=== PATIENT | male | born 1940 | race Caucasian/White ===

== ENCOUNTER 2017-10-15 09:38 | Inpatient (IN) | payer MEDICARE, BC ==
[~2017-10-15 09:38] MED LIST: Buffered Lidocaine 0.9% SYRIN* 5 ML/SYR SYRINGE INTRADERM ONE; Famotidine IV* 10 MG/ML 2 ML (20 mg) IV ONE
[2017-10-15] MEDS ORDERED: Buffered Lidocaine 0.9% SYRIN* 5 ML/SYR SYRINGE ONE (09:52)
[2017-10-15] MEDS ORDERED: Famotidine IV* 10 MG/ML 2 ML (20 mg) ONE (09:52)
[2017-10-15 10:50] LABS: EGFR Non-African American 58.7 (>60)
[2017-10-15] MEDS ORDERED: ceFAZolin 2 GM PREMIX (*) 2 GM/50 ML BAG IVPB ONE (12:48)
[2017-10-15] MEDS ORDERED: fentaNYL* 50 MCG/ML 5 ML VIAL (250 MCG VIAL) ONE (13:08)
[2017-10-15] MEDS ORDERED: Midazolam* 1 MG/ML 10 ML VIAL (10 MG) ONE (13:08)
[2017-10-15] MEDS ORDERED: Dexamethasone IV* 4 MG/ML 1 ML (4 MG) ONE (13:08)
[2017-10-15] MEDS ORDERED: Propofol* 10 MG/ML 20 ML BTL IV PUSH ONE (13:08)
[2017-10-15] MEDS ORDERED: Succinylcholine* 20 MG/ML 10 ML VIAL ONE (13:08)
[2017-10-15] MEDS ORDERED: Ondansetron INJ* 2 MG/ML VIAL ONE (13:08)
[2017-10-15] MEDS ORDERED: Lidocaine 2% PF * 5 ML VIAL ONE (13:08)
[2017-10-15] MEDS ORDERED: Lidocaine 1% MPF wEPI 200,000* 30 ML SDV ONE (13:15)
[2017-10-15] MEDS ORDERED: Bacitracin OINTMENT* 0.5% 0.5 oz TUBE ONE (13:15)
[2017-10-15] MEDS ORDERED: Naloxone* 0.4 MG/ML 1 ML VIAL IV PRN (16:07)
[2017-10-15] MEDS ORDERED: Ondansetron INJ* 2 MG/ML VIAL IV PRN (16:07)
[2017-10-15] MEDS ORDERED: fentaNYL* 50 MCG/ML 2 ML VIAL (100 MCG VIAL) IV PRN (16:07)
[2017-10-15] MEDS ORDERED: Labetalol IV* 5 MG/ML 20 ML VIAL ONE (16:21)
[2017-10-15] MEDS ORDERED: fentaNYL* 50 MCG/ML 2 ML VIAL (100 MCG VIAL) ONE (16:47)
[2017-10-15] MEDS ORDERED: Haloperidol INJ IV/IM* 5 MG/ML AMP ONE (16:56)
[2017-10-15] MEDS ORDERED: Dextrose 50% Syringe 50 ML* 25 GM/50 ML SYRINGE IV PUSH PRN (17:02)
[2017-10-15] MEDS ORDERED: hydrALAZINE IV* 20 MG/ML VIAL IV SLOW PU PRN (18:13)
[2017-10-15] MEDS ORDERED: hydrALAZINE IV* 20 MG/ML VIAL ONE (18:17)
[2017-10-15] MEDS ORDERED: hydrALAZINE IV* 20 MG/ML VIAL IV SLOW PU ONE (18:38)
[2017-10-15] MEDS: Insulin GLARGINE(*) 1 UNITS UNIT SUBCUT SCH (20:57)
[2017-10-15] MEDS: Sertraline* 50 MG TAB PO SCH (20:57)
[2017-10-15] MEDS: Atorvastatin* 10 MG TAB PO SCH (20:57)
[2017-10-15] MEDS: Tamsulosin CAP* 0.4 MG PO SCH (20:57)
--- NOTE | 2017-10-15 21:32 | CONS ---
CC: Dr. Ying Soares; Dr. Springer * CONSULTATION REPORT: DATE OF CONSULT: 10/15/17 PRIMARY CARE PROVIDER: Dr. Ying Soares. REQUESTING PHYSICIAN FOR CONSULT: Dr. Springer. REASON FOR MEDICAL CONSULTATION: Evaluation and medical management of comorbid medical condition. HISTORY OF PRESENT ILLNESS: I will refer you to Dr. Springer's H and P for further details. In short, Mr. 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 He underwent further imaging and it was felt by Dr. Springer that the patient would benefit from a neck dissection either modified or radical neck dissection. He underwent the procedure today. 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 Because of his medical complexity, we were asked to get involved to help manage this. The patient was evaluated in the PACU. He is really still drowsy. He is fixated on wanting to get out of the bed. He states he is not having any chest pain or shortness of breath. He does seem rather anxious. He states that he does not feel lightheaded or dizzy. He says that he just wants to get up and he is fixated on this. He states he is not having any pain. He denied any chest pain or shortness of breath to me. PAST MEDICAL HISTORY: Significant for: 1. Squamous cell cancer of the neck. 2. Also has a history of hypertension. 3. Hypothyroidism. 4. Diabetes. 5. BPH. 6. Anxiety. 7. History of Guillain-[place]. PAST SURGICAL HISTORY: 1. He is status post neck dissection. 2. He has had a history of rotator cuff repair. 3. Cataract extraction. 4. Thyroid resection. HOME MEDICATIONS: According to the preop list include: 1. Tramadol 25 mg every 6 hours as needed. 2. Metformin 1000 mg p.o. b.i.d. 3. BuSpar 15 mg in the morning. 4. Vitamin D3 5000 units daily. 5. Flomax 0.4 mg daily. 6. Zoloft 50 mg daily. 7. Multivitamin 1 tablet daily. 8. Lisinopril 1 tablet daily. 9. Synthroid 200 mcg p.o. daily. 10. Levemir 10 units at bedtime, 30 units in the morning. 11. Proscar 5 mg daily. 12. Calcitriol 0.5 mcg p.o. daily. 13. Lipitor 10 mg daily. 14. AREDS 1 tablet p.o. b.i.d. ALLERGIES TO MEDICATIONS: Include CODEINE and DARVON. FAMILY HISTORY: His mother had a history of diabetes. Father had a history of CVA. His mother is also bipolar. SOCIAL HISTORY: There is no report of smoking or drinking. His surrogate decision maker is his . REVIEW OF SYSTEMS: There is no documented fever. He denied having any significant weight change. There was no double vision. He denies having any ear discharge. No rhinorrhea. Denied sore throat. Denies having any chest pain. Denies any orthopnea. No nocturnal dyspnea. There was no abdominal pain. He says he does not feel nauseous. There is no vomiting. No dysuria. No frequency. No seizure. No loss of consciousness. No pruritus and no skin ulcerations. Review of 14 systems completed. All others negative. PHYSICAL EXAMINATION: Vital Signs: Blood pressure preop was 157/77 with a pulse of 86, respirations 16, O2 sat 99%, temperature 97.0. In the PACU, his blood pressure is now running 186/90. Again, it is difficult to get an accurate blood pressure because he is rather restless. His heart rate is right around 90, respirations were 18 and his O2 saturations now are 99% on 4 L, temperature is pending. HEENT: Head: Atraumatic. Eyes: EOMs intact. Sclerae anicteric and not pale. Neck: He does have an incision noted to the left portion of his neck just above the left clavicle. It is actually open to air. It is clean, dry, and intact. He has 2 JEANETH drains coming out from the left side of his neck as well, which is draining serosanguineous fluid. Throat : Oral mucosa appears to be moist. No oropharyngeal erythema. Heart: Sounds S1, S2. Regular rate and rhythm. No murmurs, rubs, or gallops. Lungs: Clear to auscultation bilaterally. No wheezes, rales, or rhonchi. Abdomen: Soft, flat, nontender. Bowel sounds hypoactive. Extremities: Pulses were 2+ throughout. He is moving all 4 extremities at this point with 5/5 strength. Neurologically, again he is fixated on wanting to get up. He does know his name is Foster. He knows that he is in the hospital. His speech was clear. His grassland conservationist were equal. He had no gross obvious focal deficits. No facial drooping. Skin: Intact with the exception he has an incision to his neck, which is open to air, clean, dry, and intact. LABORATORY DATA/DIAGNOSTIC STUDIES: Sodium of 131, potassium 4.8, chloride 98, bicarb of 25, BUN was 28, creatinine of 1.20, which is near his baseline, glucose of 150. His preop CBC reveals WBC of 6.2, RBC of 3.74, hemoglobin 12.4 , hematocrit 36, his platelet count was 254. EKG: Sinus rhythm, rate of 83, no ST elevations or T wave inversions. Old medical records were reviewed. ASSESSMENT AND PLAN: Mr. Meyer is a 76-year-old male patient coming in to the ENT surgical service today for a neck dissection. We were asked to evaluate. My recommendations at this point are: 1. Status post left neck mass resection. I will defer the management to Dr. Springer. 2. Hypertension. At this point, his blood pressure is rather elevated, but it could be secondary to anxiety. Anesthesia has given him labetalol already. In addition to this, I have given him Haldol to see if will help calm him. At this point, if his blood pressure does remain elevated, I would order p.r.n. hydralazine. Going forward, we will continue to keep an eye on this and also we will go ahead and order lisinopril and we will continue to follow. 3. Hypothyroidism. Continue Synthroid. 4. Diabetes. I have put him on Lantus 30 at bedtime with sliding scale holding the metformin. 5. Benign prostatic hypertrophy. His bladder scan in the PACU was 207, we will monitor. He has had a history of urinary retention in the past. We will continue his Proscar and his Flomax. 6. Anxiety. Continue supportive care. 7. Guillain-[place]. Currently, at this point, not an active issue. We will monitor. 8. DVT prophylaxis. Defer to the surgical team. 9. Fluids, electrolytes, and nutrition. I would recommend a consistent carb diet. TIME SPENT: Time spent on the consult 60 minutes, greater than half that time was spent [id number] with the patient obtaining my history and physical, the other half time was spent going plan of care with the patient, implementing the plan of care. I did discuss the plan of care with my attending, Dr. Miramontes; she is in agreement. MOOKIE KONG, WIRE MESH FILTER FABRICATOR [id number]/CPS #: [id number] ALICE
[2017-10-15] MEDS ORDERED: traMADol TAB* 50 MG PO PRN (21:45)
[2017-10-15] MEDS: metFORMIN* 1,000 MG TAB PO SCH (22:06)
[2017-10-15] MEDS ORDERED: Acetaminophen TAB* 325 MG PO PRN (22:15)
[2017-10-15] MEDS ORDERED: Ibuprofen TAB* 800 MG PO PRN (22:16)
[2017-10-15] MEDS ORDERED: HYDROcodone/ACETAMIN 5-325 MG* 1 TAB PO PRN (22:17)
[2017-10-15] MEDS ORDERED: Ondansetron INJ* 2 MG/ML VIAL IM PRN (22:19)
[2017-10-15] MEDS ORDERED: Ondansetron TAB* 4 MG PO PRN (22:22)
--- NOTE | 2017-10-16 05:04 | OP ---
OPERATIVE REPORT: DATE OF OPERATION: 10/15/17 DATE OF : 38 SURGEON: Landry Springer MD. [employer] UNION: Dr. Alejandre. ANESTHESIA: General. 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 OPERATIVE PROCEDURE: Left modified radical neck dissection under general anesthesia. COMPLICATIONS: None. DISPOSITION: Good. SPECIMEN: Left neck dissection. ESTIMATED BLOOD LOSS: Less than 20 mL. DESCRIPTION OF PROCEDURE: The patient was taken to the operating room, placed in supine position on the operating room table. General anesthesia was induced and he was orotracheally intubated. His he ad was hyperextended and turned to the right and a low apron incision was demarcated, injected with 1 % lidocaine, 200,000 epinephrine. He was prepped with Betadine and draped in sterile fashion. Skin incision was made with a 10 blade through the skin and platysma muscle, inferior and superior subplat ysmal flaps were raised. The inferior edge of the submandibular gland was found and the fascia was e levated off of it superiorly to preserve the margin of the mandibular nerve. The submandibular gland was taken with dissection by dissecting superior to it and leaving it attached inferiorly. This allo wed us to find the digastric muscle. The digastric muscle was traced from its anterior to posterior extent to the superior extent of the sternocleidomastoid muscle also. It became apparent at this poi nt that at least most of the sternocleidomastoid muscle was not involved, so the decision was made to preserve it. The fascia was retracted off of it posterior to medially and left attached to the spec imen. We unwrapped the sternocleidomastoid muscle to the deep fat and lymphatics. Inferiorly, we fo und the omohyoid muscle, unwrapped this but the tumor was going around it medially so we cut this lat erally and ultimately resected the omohyoid muscle with the specimen deep to the omohyoid muscle and inferior we defined our lower aspect of our dissection and brought this down to the floor of the neck . Initially, we isolated the internal jugular vein but found that the tumor was adherent to it in th e mid portion and towards the end of the case we had to tie and cut the internal jugular vein inferio rly and superiorly, this was done with 0 silks and then a 2-0 silk ligature to secure the inferior st itch and that is how it was cut. The 12th cranial nerve was found, traced and preserved as was the s parveen accessory nerve to the left shoulder. The submuscular recess was dissected free and U-flipped over and under the spinal accessory nerve. The deep aspect of the dissection was done to preserve th e rootlets coming out of the neck and the neck dissection was lifted off of the floor of the neck, pe eling it off of the vagus nerve, the internal carotid artery, again the internal jugular vein was lef t on to the specimen. We had to resect some of the lateral strap muscles inferiorly and the omohyoid brought it to the hyoid bone, we tipped these off of the hyoid bone and came around superiorly again including the submandibular gland and the specimen. The specimen was put in formalin for pathology. The hemostasis was ensured. The wound was irrigated with normal saline, two JEANETH drains were placed, these were #[address] with a drain stitch. The skin was closed with 3-0 deep dermal V icryls and then kate, and then antibiotic ointment was placed. The patient tolerated this well, no complications, extubated uneventfully and transferred to recovery room in stable condition. [id number]/[facility] #: [id number]
[2017-10-16 05:54] LABS: ABS Basophils 0 10^3/ul (0-0.2); ABS Eosinophils 0 10^3/ul (0-0.6); ABS Lymphocytes 1.2 10^3/ul (1.0-4.8); ABS Monocytes 1.2 10^3/ul (0-0.8); ABS Neutrophils 5.6 10^3/ul (1.5-7.7); ABS Nucleated RBC 0 10^3/ul; Eosinophil % 0.2 % (0-6); Hematocrit 33 % (42-52); Hemoglobin 11.6 g/dl (14.0-18.0); Lymphocyte % 15.2 % (25-47); Mean Corpuscular HGB Conc 35 g/dl (31-36); Mean Corpuscular Hemoglobin 33 pg (27-31); Mean Corpuscular Volume 95 fL (80-94); Mean Platelet Volume 6.6 um3 (7.4-10.4); Nucleated Red Blood Cells % 0; Platelet Count 235 10^3/ul (150-450); Red Cell Distribution Width 15 % (10.5-15); White Blood Count 8.1 10^3/ul (3.5-10.8)
[2017-10-16 06:10] LABS: EGFR Non-African American 64.2 (>60)
[2017-10-16] MEDS: Levothyroxine TAB* 100 MCG TAB PO SCH (06:10)
[2017-10-16] MEDS: Ondansetron INJ* 2 MG/ML VIAL IV PRN ×2 (06:34→13:47)
[2017-10-16] MEDS: Lisinopril TAB* 5 MG PO SCH (08:07)
[2017-10-16] MEDS: Calcitriol CAP* 0.25 MCG PO SCH (08:07)
[2017-10-16] MEDS: busPIRone TAB* 15 MG PO SCH (08:07)
[2017-10-16] MEDS: metFORMIN* 1,000 MG TAB PO SCH ×2 (08:07→19:52)
[2017-10-16] MEDS: Cholecalciferol TAB* 1000 UNITS PO SCH (08:07)
[2017-10-16] MEDS: Finasteride TAB* 5 MG PO SCH (08:07)
[2017-10-16] MEDS: AREDS 2 PO SCH ×2 (08:23→19:52)
[2017-10-16] MEDS: [UNRECOGNIZED DRUG - OTHER] PO SCH (08:24)
[2017-10-16] MEDS: Insulin LISPRO* 1 UNITS UNIT SUBCUT SCH ×3 (08:41→17:23)
--- NOTE | 2017-10-16 10:30 | PN ---
Subjective Date of Service: 10/16/17 Interval History: patient reports that he was restless during the night, states that he feel better now. Denies chest pain or shortness of breath. denies abd pain n/v/d Family History: Unchanged from Admission Social History: Unchanged from Admission Past Medical History: Unchanged from Admission Objective Active Medications: Acetaminophen (Tylenol Tab*) 650 mg PO Q4H PRN PRN Reason: PAIN Hydrocodone Bitart/Acetaminophen ([place] 5-325 Tab*) 1 tab PO Q4H PRN PRN Reason: PAIN Atorvastatin Calcium (Lipitor*) 10 mg PO QPM [facility] Last Admin: 10/15/17 20:57 Dose: 10 mg Buspirone HCl (Buspar Tab *) 15 mg PO QAM [facility] Last Admin: 10/16/17 08:07 Dose: 15 mg Calcitriol (Rocaltrol Cap*) 0.5 mcg PO QAM [facility] Last Admin: 10/16/17 08:07 Dose: 0.5 mcg Cholecalciferol (Vitamin D Tab*) [facility] Last Admin: 10/16/17 08:07 Dose: 5,000 units Dextrose (D50w Syringe 50 Ml*) 12.5 gm IV PUSH .FOR FS < 60 - SS PRN PRN Reason: FS < 60 Finasteride (Proscar Tab*) 5 mg PO QAM [facility] Last Admin: 10/16/17 08:07 Dose: 5 mg Hydralazine HCl (Apresoline Iv*) 5 mg IV SLOW PU Q6H PRN PRN Reason: BLOOD PRESSURE Last Admin: 10/15/17 18:17 Dose: 5 mg Lactated Ringer's (Lactated Ringers 1000 Ml Bag*) 1,000 mls @ 100 mls/hr IV PER RATE [facility] Last Admin: 10/16/17 05:52 Dose: 100 mls/hr Ibuprofen (Motrin Tab*) 800 mg PO Q8H PRN PRN Reason: PAIN Insulin Glargine (Lantus(*)) 30 units SUBCUT Q24H [facility] Last Admin: 10/15/17 20:57 Dose: 30 units Insulin Human Lispro (Humalog*) 0 units SUBCUT AC [facility] PRN Reason: Protocol Last Admin: 10/16/17 08:41 Dose: 2 units Levothyroxine Sodium (Synthroid Tab*) 200 mcg PO 0600 [facility] Last Admin: 10/16/17 06:10 Dose: 200 mcg Lisinopril (Prinivil Tab*) 5 mg PO QAM [facility] Last Admin: 10/16/17 08:07 Dose: 5 mg Metformin HCl (Glucophage*) 1,000 mg PO BID [facility] Last Admin: 10/16/17 08:07 Dose: 1,000 mg Areds 2 1 dose PO BID [facility] Last Admin: 10/16/17 08:23 Dose: Not Given Vdoamnnn-Yf-Lpvhqrr- (Lutein Tablet) 1 dose PO QAM [facility] Last Admin: 10/16/17 08:24 Dose: Not Given Ondansetron HCl (Zofran Inj*) 8 mg IM Q6H PRN PRN Reason: NAUSEA/VOMITING Ondansetron HCl (Zofran Inj*) 8 mg IV Q6H PRN PRN Reason: NAUSEA/VOMITING Last Admin: 10/16/17 06:34 Dose: 8 mg Ondansetron HCl (Zofran Tab*) 8 mg PO Q6H PRN PRN Reason: NAUSEA/VOMITING Sertraline HCl (Zoloft*) 50 mg PO QPM [facility] Last Admin: 10/15/17 20:57 Dose: 50 mg Tamsulosin HCl (Flomax Cap*) 0.4 mg PO QPM [facility] Last Admin: 10/15/17 20:57 Dose: 0.4 mg Tramadol HCl (Ultram*) 25 mg PO Q6H PRN PRN Reason: PAIN Last Admin: 10/15/17 22:08 Dose: 25 mg Vital Signs - 8 hr 10/16/17 10/16/17 10/16/17 03:24 07:17 08:00 Temperature 97.9 F 98.3 F Pulse Rate 94 88 Respiratory 16 18 18 Rate Blood Pressure 163/75 129/62 (mmHg) O2 Sat by Pulse 97 98 Oximetry 10/16/17 08:12 Temperature Pulse Rate Respiratory 18 Rate Blood Pressure (mmHg) O2 Sat by Pulse Oximetry Oxygen Devices in Use Now: None Appearance: appears comfortabel sitting in the chair Eyes: No Scleral Icterus Ears/Nose/Mouth/Throat: Mucous Membranes Moist Neck: - - kate intact to anterior base of the neck, drains intact to left neck, small amt of serosang drainage, small amt of swelling notes Respiratory: Symmetrical Chest Expansion and Respiratory Effort, Clear to Auscultation Cardiovascular: NL Sounds; No Murmurs; No JVD, No Edema Abdominal: NL Sounds; No Tenderness; No Distention Extremities: No Edema, No Clubbing, Cyanosis Skin: No Rash or Ulcers Neurological: Alert and Oriented x 3, NL Muscle Strength and Tone Nutrition: Taking PO's Result Diagrams: 10/16/17 05:30 10/16/17 05:30 Assess/Plan/Problems-Billing Assessment: Mr. Meyer is an 76 y.o male. with a history of HTN , Hypothyriodism, DM, BPH anxiety and Guillains- [place] in the s. Mr. Meyer presented to the hospital yesterday for resection of the neck d/t squamous cell carcinoma. - Patient Problems (1) Status post radical dissection of neck Current Visit: Yes Status: Acute Code(s): Z98.890 - OTHER SPECIFIED POSTPROCEDURAL STATES SNOMED Code(s): 629854339 Comment: management per ENT (2) Squamous cell carcinoma Current Visit: Yes Status: Acute Code(s): C44.92 - SQUAMOUS CELL CARCINOMA OF SKIN, UNSPECIFIED SNOMED Code(s): 004192617 (3) Diabetes Current Visit: No Status: Chronic Priority: Medium Code(s): E11.9 - TYPE 2 DIABETES MELLITUS WITHOUT COMPLICATIONS SNOMED Code(s): 00272925 Comment: Will continue Lantus 30 unit at HS Will continue metformin Lispro sliding scale (4) Hypertension Current Visit: No Status: Chronic Priority: Medium Code(s): I10 - ESSENTIAL (PRIMARY) HYPERTENSION SNOMED Code(s): 80142141 Comment: will continue lisinopril (5) Hypothyroidism Current Visit: Yes Status: Acute Code(s): E03.9 - HYPOTHYROIDISM, UNSPECIFIED SNOMED Code(s): 68025045 Comment: will continue levothyroxine (6) Hypercholesterolemia Current Visit: No Status: Chronic Priority: Medium Code(s): E78.0 - PURE HYPERCHOLESTEROLEMIA * DO NOT USE * SNOMED Code(s): 47394483 Comment: will continue atorvastatin (7) DVT prophylaxis Current Visit: Yes Status: Acute Code(s): FCQ6186 - SNOMED Code(s): 713252754 Comment: Management by ENT/ surgery (8) Full code status Current Visit: Yes Status: Acute Code(s): Z78.9 - OTHER SPECIFIED HEALTH STATUS SNOMED Code(s): 627957496
[2017-10-16] MEDS: Tamsulosin CAP* 0.4 MG PO SCH (17:23)
[2017-10-16] MEDS: Atorvastatin* 10 MG TAB PO SCH (17:23)
[2017-10-16] MEDS: Sertraline* 50 MG TAB PO SCH (17:23)
[2017-10-16] MEDS: Insulin GLARGINE(*) 1 UNITS UNIT SUBCUT SCH (19:52)
[2017-10-17] MEDS: Levothyroxine TAB* 100 MCG TAB PO SCH (05:37)
[2017-10-17 07:50] VITALS: BP 131/59
[2017-10-17] MEDS: Insulin LISPRO* 1 UNITS UNIT SUBCUT SCH (08:55)
[2017-10-17] MEDS: Cholecalciferol TAB* 1000 UNITS PO SCH (09:00)
[2017-10-17] MEDS: metFORMIN* 1,000 MG TAB PO SCH (09:01)
[2017-10-17] MEDS: Lisinopril TAB* 5 MG PO SCH (09:01)
[2017-10-17] MEDS: Finasteride TAB* 5 MG PO SCH (09:01)
[2017-10-17] MEDS: busPIRone TAB* 15 MG PO SCH (09:02)
[2017-10-17] MEDS: AREDS 2 PO SCH (09:02)
[2017-10-17] MEDS: [UNRECOGNIZED DRUG - OTHER] PO SCH (09:02)
[2017-10-17] MEDS: Calcitriol CAP* 0.25 MCG PO SCH (09:14)
--- NOTE | 2017-10-17 22:44 | DS ---
DISCHARGE SUMMARY: DATE OF ADMISSION: 10/15/17 DATE OF DISCHARGE: 10/17/17 PROCEDURE: On 10/15/17 is a left modified radicle neck dissection. DIAGNOSIS: Metastatic squamous cell carcinoma to the left neck, T0 N3 M0. Primary initially was the cheek and there was no evidence of cancer there at that time. 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 MEDICATIONS: 1. AREDS2 one tablet twice daily. 2. BuSpar 15 mg every morning. 3. Calcitriol 0.5 mcg every morning. 4. Multivitamins 1 every morning. 5. Flomax 0.4 mg every evening. 6. Glucophage 1000 mg twice daily. 7. Levemir FlexPen 30 units subcutaneous every morning. 8. Levemir FlexPen 10 units subcutaneous at bedtime. 9. Levothyroxine 200 mcg every morning. 10. Lipitor 10 mg every evening. 11. Prinivil 1 tablet every morning. 12. Proscar 5 mg every morning. 13. Ultram 25 mg every 6 hours as needed for pain. 14. Vitamin D 5000 units every morning. 15. Zoloft 50 mg every evening. 16. Tylenol 650 mg every 4 hours as needed for pain. 17. Ibuprofen 400 mg every 4 hours as needed for pain. ALLERGIES: CODEINE and PERCOCET, which both cause agitation. HOSPITAL COURSE: The patient was admitted on 10/15/17 through same day surgery for his left modified radical neck dissection that went without difficulties and 2 JEANETH drains were placed. He has done well postoperatively with recovery, eating a normal diet this morning. The JPs have decreased enough that I am able to remove them on the morning of discharge and they were removed without difficulties and 2x2s were placed over the drain sites. He is discharged in good condition on a regular diet, light activity. He can remove his small dressings tomorrow and may shower on Wednesday. Follow up with me in 2 weeks as already been scheduled. [id number]/[facility] #: [id number] MTDD
== END 2017-10-17 11:10 | disposition home or self-care (01) | DRG 821 ==
LOC: OR 09:38 → SSU 19:50
PROVIDERS: ADMIT Otolaryngology; ATTEND Otolaryngology
PROC: 07T20ZZ Resection of Left Neck Lymphatic, Open Approach (ICD-10-PCS; principal; 2017-10-15 11:45)
DX: C77.0 Secondary and unspecified malignant neoplasm of lymph nodes of head, face and neck (principal); G61.0 Guillain-Barre syndrome; E11.9 Type 2 diabetes mellitus without complications; I10 Essential (primary) hypertension; C44.92 Squamous cell carcinoma of skin, unspecified; M06.9 Rheumatoid arthritis, unspecified; N40.1 Benign prostatic hyperplasia with lower urinary tract symptoms; R33.8 Other retention of urine; E03.9 Hypothyroidism, unspecified; F41.9 Anxiety disorder, unspecified; E78.00 Pure hypercholesterolemia, unspecified; Z85.828 Personal history of other malignant neoplasm of skin; Z85.850 Personal history of malignant neoplasm of thyroid; Z79.84 Long term (current) use of oral hypoglycemic drugs; Z79.899 Other long term (current) drug therapy; Z88.5 Allergy status to narcotic agent; Z88.8 Allergy status to other drugs, medicaments and biological substances; Z83.3 Family history of diabetes mellitus; Z82.3 Family history of stroke; Z81.8 Family history of other mental and behavioral disorders
CPT/HCPCS: 36415; 80048; 80053; 85025; 86850; 86900; 86901; 88307; A9270-GY; C1776; J0330; J0360; J0690; J1100; J1630; J2001; J2250; J2405; J2704; J3010

== ENCOUNTER 2018-07-20 13:29 | Emergency (ER) | payer MEDICARE, BC ==
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
[2018-07-20 15:11] LABS: ABS Basophils 0 10^3/ul (0-0.2); ABS Eosinophils 0.3 10^3/ul (0-0.6); ABS Monocytes 0.8 10^3/ul (0-0.8); ABS Neutrophils 5.3 10^3/ul (1.5-7.7); ABS Nucleated RBC 0 10^3/ul; Eosinophil % 4.3 %; Hematocrit 37 % (42-52); Hemoglobin 12.3 g/dl (14.0-18.0); Lymphocyte % 13.2 %; Mean Corpuscular HGB Conc 33 g/dl (31-36); Mean Corpuscular Hemoglobin 31 pg (27-31); Mean Corpuscular Volume 94 fL (80-94); Mean Platelet Volume 6.7 fL (7.4-10.4); Nucleated Red Blood Cells % 0; Platelet Count 271 10^3/ul (150-450); Red Blood Count 3.92 10^6/ul (4.00-5.40); Red Cell Distribution Width 14 % (10.5-15); White Blood Count 7.5 10^3/ul (3.5-10.8)
[2018-07-20 15:30] LABS: Activated Partial Thrombo Time 27.7 seconds (26.0-36.3); Albumin/Globulin Ratio 1.2 (1-3); BUN/Creatinine Ratio 20.4 (8-20); Calcium 10.3 mg/dL (8.6-10.3); EGFR Non-African American 41.4 (>60); Globulin 3.3 g/dL (2-4); INR 0.92 (0.77-1.02); Potassium 4.9 mmol/L (3.5-5.0); Total Bilirubin 0.3 mg/dL (0.2-1.0); Total Protein 7.3 g/dL (6.4-8.9)
[2018-07-20 15:38] LABS: Urine Appearance Clear; Urine Bilirubin Negative (Negative); Urine Blood Negative (Negative); Urine Color Yellow; Urine Glucose Negative (Negative); Urine Ketones Negative (Negative); Urine Nitrite Negative (Negative); Urine Protein Negative (Negative); Urine Specific Gravity 1.018 (1.010-1.030); Urine Urobilinogen Negative (Negative)
[2018-07-20 16:32] LABS: Erythrocyte Sed Rate 50 mm/Hr (0-40)
[2018-07-20 17:02] LABS: C Reactive Protein 3.35 mg/L (<8.01)
[2018-07-20 17:28] VITALS: BP 171/84
[2018-07-20 18:08] LABS: TSH (Thyroid Stimulating Horm) 0.2 mcIU/mL (0.34-5.60)
== END 2018-07-20 17:36 | disposition home or self-care (01) ==
LOC: ED 13:29
DX: R53.1 Weakness (principal); Z91.81 History of falling; Z85.858 Personal history of malignant neoplasm of other endocrine glands
CPT/HCPCS: 36415; 70450; 71045; 80053; 81003; 83605; 84436; 84443; 84484; 85025; 85610; 85652; 85730; 86140; 93005; 99283

== ENCOUNTER 2018-10-31 07:50 | Inpatient (IN) | payer MEDICARE, BC ==
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
[2018-10-31 08:30] LABS: ABS Basophils 0 10^3/ul (0-0.2); ABS Eosinophils 0.1 10^3/ul (0-0.6); ABS Lymphocytes 0.9 10^3/ul (1.0-4.8); ABS Monocytes 0.6 10^3/ul (0-0.8); ABS Neutrophils 6.8 10^3/ul (1.5-7.7); ABS Nucleated RBC 0 10^3/ul; Eosinophil % 1.4 %; Hematocrit 17 % (36-46); Lymphocyte % 10.6 %; Mean Corpuscular HGB Conc 34 g/dL (31-36); Mean Corpuscular Hemoglobin 33 pg (27-31); Mean Corpuscular Volume 97 fL (80-94); Mean Platelet Volume 7.8 fL (7.4-10.4); Nucleated Red Blood Cells % 0.2; Platelet Count 245 10^3/uL (150-450); Red Blood Count 1.79 10^6 /uL (4.18-5.48); Red Cell Distribution Width 14 % (10.5-15); White Blood Count 8.5 10^3/uL (3.5-10.8)
[2018-10-31 08:42] LABS: ALT 13 U/L (7-52); AST 14 U/L (13-39); Albumin 3.2 g/dL (3.2-5.2); Albumin/Globulin Ratio 1.4 (1-3); Alkaline Phosphatase 38 U/L (34-104); BUN/Creatinine Ratio 45.6 (8-20); Blood Urea Nitrogen 93 mg/dL (6-24); CO2 Carbon Dioxide 27 mmol/L (22-32); Calcium 11.5 mg/dL (8.6-10.3); Chloride 101 mmol/L (101-111); EGFR African American 38.4 (>60); EGFR Non-African American 31.7 (>60); Globulin 2.3 g/dL (2-4); Glucose 239 mg/dL (70-100); Magnesium 1.8 mg/dL (1.9-2.7); Sodium 132 mmol/L (135-145); Total Protein 5.5 g/dL (6.4-8.9)
[2018-10-31 08:45] LABS: Troponin I 0.04 ng/mL (<0.04)
[2018-10-31 09:00] LABS: Alcohol < 10 mg/dL (<10)
[2018-10-31 09:02] LABS: Anion Gap 4 mmol/L (2-11); Potassium 5.6 mmol/L (3.5-5.0)
[2018-10-31 09:08] LABS: Urine Appearance Cloudy; Urine Bacteria Absent (Absent); Urine Bilirubin Negative (Negative); Urine Blood Negative (Negative); Urine Color Straw; Urine Glucose Negative (Negative); Urine Ketones Negative (Negative); Urine Nitrite Negative (Negative); Urine Protein Negative (Negative); Urine Red Blood Cell Trace(0-2/hpf) (Absent); Urine Specific Gravity 1.014 (1.010-1.030); Urine Urobilinogen Negative (Negative); Urine White Blood Cell 3+(>20/hpf) (Absent)
[2018-10-31 09:15] LABS: TSH (Thyroid Stimulating Horm) 1.88 mcIU/mL (0.34-5.60)
[2018-10-31] MEDS ORDERED: NS 0.9% 1000 ML** 2,000 ML IV ONE (09:23)
[2018-10-31] MEDS ORDERED: Pantoprazole IV* 40 MG IV ONE (09:23)
[2018-10-31] MEDS ORDERED: Pantoprazole* 80 mg IN NS 80 MG/250 ML BAG IVPB ONE (09:23)
[2018-10-31 09:59] LABS: Activated Partial Thrombo Time 19.8 seconds (26.0-36.3); INR 0.94 (0.77-1.02)
[2018-10-31] MEDS: Pantoprazole* 80 mg IN NS 80 MG/250 ML BAG IVPB SCH ×2 (12:07→22:35)
[2018-10-31] MEDS ORDERED: Dextrose 50% Syringe 50 ML* 25 GM/50 ML SYRINGE IV PUSH PRN (12:28)
--- NOTE | 2018-10-31 13:44 | HP ---
CC: Ying Soares MD* HISTORY AND PHYSICAL: DATE OF ADMISSION: 10/31/18 PRIMARY CARE PROVIDER: Ying Soares MD. ATTENDING PHYSICIAN: Marya Wilson MD* (dictated by CATHERINE Cohen). CHIEF COMPLAINT: Weakness. HISTORY OF PRESENT ILLNESS: Mr. Meyer is a 77-year-old male with a past medical history as described below, who presented to the ER today after several days of weakness, agitation, and restlessness. His is present in the room with him and adds to the story. Recently, the patient had been at [facility] for approximately 3 weeks for physical therapy and has been home the past 10 days having home physical therapy. For the last approximately 3 days, his states that the patient has been agitated and unsettled and trying to get up and he states that he felt as if he could not get comfortable and was anxious to move. He notes that he had progressive weakness that was worsening throughout the last 3 days. He also noted increased sleep. He states that his legs felt weak with standing. He notes that he has a history of macular degeneration, but states that his vision was blurrier. He also relays that he has felt like he has had a "sour stomach" with some amount of heartburn and nausea. In the ER, it is noted that his H and H was low and required transfusion of 2 units PRBCs. The patient admits to using Aleve at home. He has had approximately 4 Aleve over the last 10 days. He notes that he has had the same amount of Aleve at [facility] in the preceding 3 weeks. He states that he also Excedrin on occasionally and has had approximately 2 doses in the last few days.He states that his stools have been dark but not black and tarry. It is noted that the patient has fallen approximately 5 times in the last 10 days. He states that he did hit his head one time. He denies shortness of breath or chest pain. He denies hematemesis or bright red blood per rectum. While in the emergency room, the patient received a full workup, which included chest x- ray, head CT, and cervical spine CT. He again was noted to have anemia that was treated with 2 units of packed red blood cells in the ER. He was given Protonix IV. The hospitalist team were asked to evaluate the patient for admission. PAST MEDICAL HISTORY: 1. Diabetes mellitus. 2. Hypothyroidism due to total thyroidectomy in 2015 for thyroid cancer. 3. Hyperlipidemia. 4. Hypertension. 5. BPH. 6. Progressive supranuclear palsy. 7. Macular degeneration. 8. 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 9. 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 PAST SURGICAL HISTORY: Total thyroidectomy in 2015; left rotator cuff, left hand; cholecystectomy; bilateral cataracts; hernia; squamous cell removal from face/neck. HOME MEDICATIONS: 1. Metformin 1000 p.o. b.i.d. 2. Buspirone 15 mg p.o. q.a.m. 3. Tamsulosin 0.4 mg p.o. q.p.m. 4. PreserVision AREDS 2 tabs p.o. everyday. 5. Naproxen 2 tabs p.o. q.8 hours p.r.n. 6. Lisinopril 5 mg p.o. daily. 7. Levothyroxine 125 mcg p.o. daily. 8. Detemir 30 units q.a.m. 9. Finasteride 5 mg p.o. everyday. 10. Calcitriol 0.5 mcg p.o. q.a.m. 11. Atorvastatin 10 mg p.o. q.p.m. ALLERGIES: CODEINE, agitation; PROPOXYPHENE, agitation. FAMILY HISTORY: Positive for diabetes mellitus, hypertension, and CVA. Negative for MD and cancer. SOCIAL HISTORY: The patient does not and has never smoked. He occasionally uses alcohol stating he will drink a beer per month. He does not use illicit drugs. He lives at home with his . In the event that he is unable to make his own medical decisions, he has appointed, Mayra Meyer, his , home phone number [phone], cellphone [phone], to be a surrogate decision maker. REVIEW OF SYSTEMS: A 10-point review of systems was performed and all the pertinent positives and negatives are in the HPI, all other systems are negative. PHYSICAL EXAMINATION GENERAL: Mr. Meyer is a well-developed, well-nourished, older white man, who is sitting up in bed. He is pale but appears to be in no acute distress. VITAL SIGNS: Temperature 97.6 temporally, heart rate 74, respiratory rate 9, oxygen saturation 100% on 2 L, blood pressure 121/68. HEENT: Visual johns are grossly intact. Pupils are equally round and reactive to light. Extraocular movements are intact. Conjunctivae are pale. Hearing is grossly intact. Oral mucous membranes are pale and appeared dry. NECK: With full range of motion. Trachea is at midline. There is no lymphadenopathy. It is noted that the patient has a mass on the left anterior side of the neck that is from thyroidectomy. RESPIRATORY: Symmetrical chest expansion without use of accessory muscles. The lungs are clear to auscultation. There are no rhonchi, wheezes, or rubs. CARDIOVASCULAR: Regular rate and rhythm with S1 and S2 present. There is a systolic murmur noted. There is no rubs, gallops, or JVD. ABDOMEN: Bowel sounds in all quadrants. The abdomen is soft and nontender to palpation. There is a small epigastric mass that is nontender. There is no hepatosplenomegaly. EXTREMITIES: Skin is warm and smooth bilaterally. There is no edema, clubbing , or cyanosis. Radial pulses palpable. Pedal pulses weak. NEUROLOGIC: The patient is awake and alert. He is able to move all of his extremities. DIAGNOSTIC STUDIES/LAB DATA: Chest x-ray, 10/31/18, impression: No evidence for acute intrathoracic disease. Brain CT, 10/31/18, impression: No evidence for acute intracranial abnormalities. Atrophy and findings suggestive of mild chronic small-vessel ischemic changes, area of calcification within the midbrain unchanged. Cervical spine CT, 10/31/18, impression: No CT evidence for traumatic cervical spine injury, a fusiform soft tissue mass along the course of the left sternocleidomastoid muscle and inseparable from the muscle measuring up to 3.4 cm transversely by 4.2 cm. AP is grossly unchanged compared with the PET/CT from 10/08/17. Severe calcific plaque at the aortic bifurcation. Degenerative spondylosis and facet joint osteoarthritis with associated multilevel foraminal stenosis. ECG, 10/31/18: Sinus rhythm, normal P axis. Ventricular rate 60 to 99. WBC 8.5, RBC 1.79, HGB 6.0, HCT 17, MCV 97, MCH 33, platelet 245. Sodium 132, potassium 5.6, chloride 101, carbon dioxide 27, anion gap 4, BUN 93, creatinine 2.04. Glucose 239, lactic acid 1.9, calcium 11.5, magnesium 1.8. Troponin 0.04. TSH 1.88. ASSESSMENT AND PLAN: Mr. Meyer is a 77-year-old male with a past medical history as described above, who presented to the ER today with complaints of agitation and was found to be anemic. The patient will be admitted inpatient for: 1. Anemia: The patient is positive for nonsteroidal antiinflammatory drug use and dark stools, but denies hematemesis, hematochezia and black-tarry stools. There is concern for gastrointestinal bleed. Dr. Dennis has been consulted. The patient will remain n.p.o. in hopes of getting a scope this afternoon. He received 2 units of blood in the ER. H and H and BMP will be repeated approximately 1 hour after transfusion. Serial H and H will be performed q.6 hours. The patient will be placed on a Protonix drip. 2. Diabetes mellitus: The patient takes detemir at home. He will be placed on Lantus 20U qd while eating. Metformin will be held for the time being. He will be placed on sliding scale insulin and AC and HS fingerstick checks while eating. 3. Hypertension: Continue lisinopril. 4. Hypothyroid: Continue levothyroxine. 5. Benign prostatic hypertrophy: Continue finasteride, tamsulosin. 6. Hyperlipidemia: Continue atorvastatin. 7. DVT prophylaxis: According to the DVT Risk Assessment, the patient scores 3 and is high risk. In the setting of possible gastrointestinal bleed, chemoprophylaxis will be held. The patient will be placed on sequential compression devices. 8. Code status: We will discuss. TIME SPENT: Approximately 60 minutes was spent on this admission, greater than half of that time was spent with the patient and his obtaining history, performing physical, and reviewing the plan of care. The case has been reviewed with my attending, Dr. Wilson, who is in agreement with the plan of care. CATHERINE GOMEZ [id number]/[facility] #: [id number] ADDENDUM TO HISTORY AND PHYSICAL: CC: Dr. Soares; Dr. Timmons* DATE OF ADMISSION: 10/31/18. CONSULTING NEUROLOGIST: Dr. Velásquez. CONSULTING BUTCHER'S ASSISTANT: Dr. Timmons The patient was seen and examined at bedside and case was reviewed and discussed with CATHERINE Cohen. HISTORY OF PRESENT ILLNESS: Ms. Meyer is a 77-year-old male with a past medical history of rheumatoid arthritis, hypertension, Guillain-[place], anxiety, depression, thyroid cancer, macular degeneration, CKD stage 3, diabetes who presents to the emergency room with complaints of weakness and falls. He was found to have a hemoglobin of 6, with a BUN of 93 and a creatinine of 2. His presentation is suggestive of an upper GI bleed. The patient does take Excedrin for headaches at home and Naproxen for general aches and pains, but the states that she is very parsimonious about it. PHYSICAL EXAMINATION VITAL SIGNS: On physical examination, the patient has temperature 97.3, heart rate of 75, respiratory rate 16, oxygen saturation 97% on 2 liters of nasal cannula, blood pressure 129/51. GENERAL: This is an elderly gentleman lying in bed in no acute distress. LUNGS: Chest, breath sounds present bilaterally, but no added sounds. HEART: Normal S1, and S2. Regular rate and rhythm. ABDOMEN: Soft, nontender. Bowel sounds are present and increased. NEUROLOGIC: He is alert and oriented x3. DIAGNOSTIC IMPRESSION/LAB DATA: His labs were reviewed and his hemoglobin was found to be 6, with hematocrit of 17, down from a baseline of 12.5 in September. His creatinine is also elevated from a baseline of 1.5 to 2 and his BUN is disproportionally elevated from a baseline of 50 to 93. Imaging studies were also reviewed. We have a chest x-ray that shows no acute thoracic disease. A CT of the brain with no acute findings and a CT of the cervical spine with a fusiform soft tissue mass along the course of the left sternocleidomastoid muscle, inseparable from the muscle measuring up to 3.4 cm x 4. 2 cm, grossly unchanged compared with a PET/CT from 10/08/17. No mention of fracture. PLAN: The patient has two 18-gauge IVs, one in each arm and the plan is for him to have 2 IV access at all time. He was placed on a Protonix drip. He will receive PRBC transfusions and Gastroenterology consultation was requested with Dr. Timmons. The patient will be n.p.o. for an EGD. I suspect an upper GI bleed that could be associated with PUD since the patient takes NSAID as an outpatient. At this point, he is hemodynamically stable and he will be admitted to the fourth floor and we will monitor his H and H closely. Marya Wilson MD [id number]/[facility] #: [id number] MTDChinyere
[2018-10-31 14:15] LABS: Hematocrit 21 % (36-46); Hemoglobin 7.1 g/dL (14.0-18.0)
[2018-10-31 14:31] LABS: BUN/Creatinine Ratio 43.9 (8-20); Calcium 10.2 mg/dL (8.6-10.3); EGFR African American 44.4 (>60); EGFR Non-African American 36.7 (>60)
[2018-10-31 14:35] LABS: Potassium 5.2 mmol/L (3.5-5.0)
--- NOTE | 2018-10-31 14:43 | HP ---
CC: Dr. Soares; Dr. Timmons ADDENDUM HISTORY AND PHYSICAL: CONSULTING NEUROLOGIST: Dr. Velásquez. CONSULTING PHOTOCOPYING MACHINE OPERATOR: Dr. Timmons The patient was seen and examined at bedside and case was reviewed and discussed with CATHERINE Machado am. HISTORY OF PRESENT ILLNESS: Ms. Meyer is a 77-year-old male with a past medical history of rheuma toid arthritis, hypertension, Guillain-[place], anxiety, depression, thyroid cancer, macular degenerati on, CKD stage 3, diabetes who presents to the emergency room with complaints of weakness and falls. He was found to have a hemoglobin of 6, with a BUN of 93 and a creatinine of 2. His presentation is suggestive of an upper GI bleed. The patient does take Excedrin for headaches at home and Naproxen f or general aches and pains, but the states that she is very parsimonious about it. PHYSICAL EXAMINATION VITAL SIGNS: On physical examination, the patient has temperature 97.3, heart rate of 75, respirator y rate 16, oxygen saturation 97% on 2 liters of nasal cannula, blood pressure 129/51. GENERAL: This is an elderly gentleman lying in bed in no acute distress. LUNGS: Chest, breath sounds present bilaterally, but no added sounds. HEART: Normal S1, and S2. Regular rate and rhythm. ABDOMEN: Soft, nontender. Bowel sounds are present and increased. NEUROLOGIC: He is alert and oriented x3. DIAGNOSTIC IMPRESSION/LAB DATA: His labs were reviewed and his hemoglobin was found to be 6, with h ematocrit of 17, down from a baseline of 12.5 in September. His creatinine is also elevated from a basel ine of 1.5 to 2 and his BUN is disproportionally elevated from a baseline of 50 to 93. Imaging studies were also reviewed. We have a chest x-ray that shows no acute thoracic disease. A C T of the brain with no acute findings and a CT of the cervical spine with a fusiform soft tissue mass along the course of the left sternocleidomastoid muscle, inseparable from the muscle measuring up to 3.4 cm x 4. 2 cm, grossly unchanged compared with a PET/CT from 10/08/17. No mention of fracture. PLAN: The patient has two 18-gauge IVs, one in each arm and the plan is for him to have 2 IV access at all time. He was placed on a Protonix drip. He will receive PRBC transfusions and Gastroenterolo gy consultation was requested with Dr. Timmons. The patient will be n.p.o. for an EGD. I suspect an upper GI bleed that could be associated with PUD since the patient takes NSAID as an outpatient. At this point, he is hemodynamically stable and he will be admitted to the fourth floor and we will velia tor his H and H closely. [id number]/[facility] #: [id number]
--- NOTE | 2018-10-31 14:56 | PN ---
Subjective Date of Service: 10/31/18 Interval History: Talked with Dr. Dennis, who plans for scope tomorrow morning. He will see patient tonight. PLAN: Clear liquid diet tonight and NPO after midnight. Continue Lispro SS AC, HS Transfuse 1U PRBC for Hgb 7.1 Objective Active Medications: Atorvastatin Calcium (Lipitor*) 10 mg PO QPM GILLES Buspirone HCl (Buspar Tab *) 15 mg PO QAM GILLES Dextrose (D50w Syringe 50 Ml*) 12.5 gm IV PUSH .FOR FS < 60 - SS PRN PRN Reason: FS < 60 Finasteride (Proscar Tab*) 5 mg PO DAILY GILLES Pantoprazole Sodium (Protonix Iv Bag*) 80 mg in 250 mls @ 25 mls/hr IVPB ED ONCE ONE Stop: 10/31/18 19:22 Last Admin: 10/31/18 10:08 Dose: 25 mls/hr Pantoprazole Sodium (Protonix Iv Bag*) 80 mg in 250 mls @ 25 mls/hr IVPB Q10H GILLES Last Admin: 10/31/18 12:07 Dose: Not Given Insulin Glargine (Lantus(*)) 20 units SUBCUT Q24H GILLES Insulin Human Lispro (Humalog*) 0 units SUBCUT Q4H [facility]; Protocol Levothyroxine Sodium (Synthroid Tab*) 125 mcg PO 0600 GILLES Lisinopril (Prinivil Tab*) 5 mg PO DAILY [facility] Multivitamins/Minerals (Preservision Areds 2) 2 cap PO DAILY [facility] Tamsulosin HCl (Flomax Cap*) 0.4 mg PO QPM [facility] Vital Signs - 8 hr 10/31/18 10/31/18 10/31/18 07:55 07:56 08:01 Temperature 97.6 F Pulse Rate 99 97 89 Respiratory 16 3 Rate Blood Pressure 127/52 (mmHg) O2 Sat by Pulse 83 88 95 Oximetry 10/31/18 10/31/18 10/31/18 08:27 09:05 09:07 Temperature Pulse Rate 87 81 Respiratory 12 15 10 Rate Blood Pressure 103/42 127/50 (mmHg) O2 Sat by Pulse 100 100 Oximetry 10/31/18 10/31/18 10/31/18 09:23 09:29 09:37 Temperature Pulse Rate 81 81 76 Respiratory 7 12 10 Rate Blood Pressure 84/46 115/47 102/48 (mmHg) O2 Sat by Pulse 96 100 100 Oximetry 10/31/18 10/31/18 10/31/18 09:52 10:01 10:07 Temperature Pulse Rate 74 77 75 Respiratory 6 14 10 Rate Blood Pressure 110/48 111/50 (mmHg) O2 Sat by Pulse 100 100 100 Oximetry 10/31/18 10/31/18 10/31/18 10:19 10:22 10:37 Temperature Pulse Rate 74 78 71 Respiratory 6 10 7 Rate Blood Pressure 110/51 105/46 123/62 (mmHg) O2 Sat by Pulse 100 100 100 Oximetry 10/31/18 10/31/18 10/31/18 10:53 11:00 11:07 Temperature Pulse Rate 76 75 78 Respiratory 17 9 10 Rate Blood Pressure 119/50 139/56 (mmHg) O2 Sat by Pulse 100 100 100 Oximetry 10/31/18 10/31/18 10/31/18 11:23 11:38 11:52 Temperature Pulse Rate 78 78 74 Respiratory 12 15 7 Rate Blood Pressure 139/60 129/68 121/68 (mmHg) O2 Sat by Pulse 100 100 100 Oximetry 10/31/18 10/31/18 10/31/18 12:00 12:07 12:22 Temperature Pulse Rate 73 75 69 Respiratory 9 10 5 Rate Blood Pressure 118/53 103/40 (mmHg) O2 Sat by Pulse 100 100 100 Oximetry 10/31/18 10/31/18 10/31/18 12:37 12:47 12:54 Temperature 97.3 F Pulse Rate 72 77 Respiratory 12 14 Rate Blood Pressure 106/46 153/54 (mmHg) O2 Sat by Pulse 100 100 Oximetry 10/31/18 10/31/18 10/31/18 13:00 13:08 13:35 Temperature 97.3 F Pulse Rate 78 74 75 Respiratory 16 13 16 Rate Blood Pressure 129/51 129/51 (mmHg) O2 Sat by Pulse 100 97 97 Oximetry 10/31/18 13:55 Temperature 97.3 F Pulse Rate 86 Respiratory 24 Rate Blood Pressure 156/62 (mmHg) O2 Sat by Pulse 95 Oximetry Oxygen Devices in Use Now: Nasal Cannula Result Diagrams: 10/31/18 14:06 10/31/18 14:06 Microbiology and Other Data: Microbiology 10/31/18 09:15 Stool Occult Blood (BRENNA) - Final Stool Assess/Plan/Problems-Billing Assessment:
[2018-10-31] MEDS: Insulin LISPRO* 1 UNITS UNIT SUBCUT SCH ×6 (15:22→22:19)
[2018-10-31] MEDS: Atorvastatin* 10 MG TAB PO SCH (17:20)
[2018-10-31] MEDS: Tamsulosin CAP* 0.4 MG PO SCH (17:20)
--- NOTE | 2018-10-31 17:37 | CONS ---
CONSULTATION REPORT: DATE OF CONSULT: 10/31/18 REQUESTING PHYSICIAN: Dr. Wilson. INDICATION: Melena. NARRATIVE: Mr. Meyer is a 77-year-old gentleman who has a past medical history of progressive supranuclear palsy, hypertension, hyperlipidemia, hypothyroid, diabetes, BPH, who was brought to the emergency room for weakness and melena. The patient has been residing at [facility] [place] for physical therapy; however, had been at home for the past few days. He does tell me that he has had an upset stomach. He denies any vomiting. He does have nausea. He states he is also very constipated, often has to push and strain to have a bowel movement. He himself denies any blood in the stool, but according to chart, his wide had mentioned that his stools have been dark. He again denies any vomiting. He does take nonsteroidals on a fairly regular basis. He uses Aleve. He has never had any gastrointestinal bleeding in the past. He denies any family history of stomach cancer or colorectal cancer. PAST MEDICAL HISTORY: Please see the HPI. Also, macular degeneration, squamous cell skin cancer, and Guillain-[place]. PAST SURGICAL HISTORY: Includes thyroidectomy approximately 4 years ago, cholecystectomy, hernia repair, skin cancer surgery. MEDICATIONS: At home, include: 1. Atorvastatin. 2. Finasteride. 3. Levothyroxine. 4. Lisinopril. 5. Naproxen as needed. 6. Buspirone. 7. Metformin. ALLERGIES: To CODEINE. FAMILY HISTORY: Diabetes, hypertension. SOCIAL HISTORY: He denies any alcohol or tobacco. He does live with his . REVIEW OF SYSTEMS: Twelve systems were reviewed, other than that mentioned in the HPI were unremarkable. PHYSICAL EXAM: Temperature is 97.3, blood pressure 156/62, pulse is 86, respiratory rate of 24, O2 sat is 95%. General: Well-appearing male, in no apparent distress, alert, oriented pleasant, fluent. HEENT: Mucous membranes are dry without lesions, ulcers, or exudate. Neck is supple. Trachea is midline. Head is normocephalic, atraumatic. Heart: Regular rate and rhythm. No murmurs, rubs, or gallops. Lungs: Clear to auscultation bilaterally. No wheezes, rales, or rhonchi. Abdomen: Positive bowel sounds, soft, mild periumbilical tenderness. No rebound. No guarding. Skin is warm and dry. DIAGNOSTIC STUDIES/LAB DATA: Labs, of note, hemoglobin was 6, it up to 7.1 after 2 units; white count is 8.5; platelets of 245. INR is 0.94. Potassium is 5.2, BUN came down from 93 to 79, creatinine is 1.8. First troponin is 0.04. TSH is 188. He also had a brain CT that shows no acute intracranial abnormality. ASSESSMENT AND PLAN: This is a 77-year-old gentleman with melena and fairly significant anemia, who does use nonsteroidals. I do wonder about peptic ulcer disease. He is on IV Protonix already. He will be on a clear liquid diet. He will be n.p.o. after midnight for an upper endoscopy tomorrow. I will make arrangement for this. [id number]/[facility] #: [id number] MTDD
[2018-10-31] MEDS ORDERED: traZODone TAB* 50 MG TAB PO PRN (17:49)
[2018-10-31] MEDS ORDERED: traZODone TAB* 50 MG TAB PO ONE (17:52)
[2018-10-31 20:48] LABS: Hematocrit 22 % (36-46); Hemoglobin 7.6 g/dL (14.0-18.0)
[2018-11-01 01:35] LABS: Hematocrit 22 % (36-46); Hemoglobin 7.5 g/dL (14.0-18.0)
[2018-11-01] MEDS: Insulin GLARGINE(*) 1 UNITS UNIT SUBCUT SCH (05:45)
[2018-11-01] MEDS: Levothyroxine TAB* 125 MCG TAB PO SCH (06:02)
[2018-11-01 06:52] LABS: ABS Basophils 0 10^3/ul (0-0.2); ABS Eosinophils 0.3 10^3/ul (0-0.6); ABS Monocytes 0.6 10^3/ul (0-0.8); ABS Neutrophils 5.1 10^3/ul (1.5-7.7); ABS Nucleated RBC 0 10^3/ul; Eosinophil % 4.9 %; Hematocrit 22 % (36-46); Hemoglobin 7.6 g/dL (14.0-18.0); Lymphocyte % 13.6 %; Mean Corpuscular HGB Conc 34 g/dL (31-36); Mean Corpuscular Hemoglobin 32 pg (27-31); Mean Corpuscular Volume 93 fL (80-94); Mean Platelet Volume 7.8 fL (7.4-10.4); Nucleated Red Blood Cells % 0.1; Platelet Count 219 10^3/uL (150-450); Red Blood Count 2.37 10^6 /uL (4.18-5.48); Red Cell Distribution Width 15 % (10.5-15); White Blood Count 7.1 10^3/uL (3.5-10.8)
[2018-11-01] MEDS ORDERED: Insulin LISPRO* 1 UNITS UNIT SUBCUT SCH (07:00)
[2018-11-01 07:04] LABS: BUN/Creatinine Ratio 37.3 (8-20); Calcium 9.2 mg/dL (8.6-10.3); EGFR African American 54.8 (>60); EGFR Non-African American 45.3 (>60); Potassium 4.5 mmol/L (3.5-5.0)
[2018-11-01] MEDS: Insulin LISPRO* 1 UNITS UNIT SUBCUT SCH ×4 (07:38→20:49)
[2018-11-01] MEDS ORDERED: Lisinopril TAB* 5 MG PO SCH ×2 (09:00→19:10)
[2018-11-01] MEDS: Pantoprazole* 80 mg IN NS 80 MG/250 ML BAG IVPB SCH (09:53)
[2018-11-01] MEDS ORDERED: Midazolam* 1 MG/ML 10 ML VIAL (10 MG) ONE (14:28)
[2018-11-01] MEDS ORDERED: fentaNYL* 50 MCG/ML 2 ML VIAL (100 MCG VIAL) ONE (14:28)
--- NOTE | 2018-11-01 16:22 | PRO ---
DATE: 11/01/18 - ROOM #449 REFERRING PHYSICIANS: Ying Soares, Roman Connors, Thuan Márquez.* PROCEDURE: Upper gastrointestinal endoscopy through to fourth portion of duodenum. INDICATION: This 77-year-old man originally from [place], [place], was admitted with melena. He had been taking Aleve at home. He has a complex past history including rheumatoid arthritis, Guillain-[place], polymyalgia rheumatica, rotator cuff surgery, and a neurologic disorder listing progressive supranuclear palsy. He has not been treated for chronic gastrointestinal problems. Aleve is listed as a p.r.n. He came in with a hemoglobin of 6.0 and has been transfused 2 units with hemoglobin now 24 hours later 7.6. His BUN baseline of about 30 to 35, was 93 on admission and has drifted down to 56. Informed consent was obtained and his DNR order temporarily interrupted. ENDOSCOPIST: Iain MEDICATIONS: Midazolam 4, fentanyl 50. FINDINGS: He is an impatient, garrulous, elderly man becoming quite upset about waiting. He was positioned left side down and moderate sedation induced with sequential doses of medication. He tolerated the exam very well. EGD: Larynx - narrow and asymmetry without gross erythema. Esophagus - easily entered, the mucosa is normal in the upper, mid, and lower esophagus with EG junction at 38. There is a broad ckasb-[id number] length hiatal hernia. There are no erosions and no Rodas's change. Stomach - generally normal mucosa in the cardia, fundus, and body. The antrum has considerable deformity and spasticity initially, although that did even out with distention. There were no erosions in the gastric antrum per se and no ulcer seen. The pylorus appeared normal. Duodenum - the bulb had some patchy irregularity to the superficial mucosa at the apex of the bulb and then there was restriction. Some blood regurgitated back from the sweep. There was fresh blood. This only lasted a minute or even less. The scope did attenuate itself around a somewhat restricted, scarred apex of the bulb and second portion and into the free duodenum. The third and fourth of the duodenum had a little bit of old coffee-ground material in it. Coming back slowly, a small puddle of fresh blood was seen in the proximal second portion and at a 9 or 10 o'clock orientation, there was a small ulcer. It was fairly superficial. There was no spurting bleeding and actually the bleeding had stopped that point just a couple minutes later. The area was observed during 3 passes and no welling up of blood or protuberant visible vessel was seen. Procedure was terminated. IMPRESSION: 1. Gastritis with mild deformity gastric antrum. 2. Medium hiatal hernia. 3. Duodenal ulcer apex of the bulb - continue off of NSAIDs and for a day or two more IV PPI and then twice a day PPI for a month and once a day thereafter. [id number]/[facility] #: [id number] [facility]
[2018-11-01] MEDS: MINS PO SCH (17:19)
[2018-11-01] MEDS: MULTIVITAMINS AREDS2 PO SCH (17:19)
[2018-11-01] MEDS: Finasteride TAB* 5 MG PO SCH (17:27)
[2018-11-01] MEDS: busPIRone TAB* 15 MG PO SCH (17:27)
[2018-11-01] MEDS: Tamsulosin CAP* 0.4 MG PO SCH (17:30)
[2018-11-01] MEDS: Atorvastatin* 10 MG TAB PO SCH (17:30)
[2018-11-01 17:37] LABS: Hematocrit 22 % (36-46); Hemoglobin 7.5 g/dL (14.0-18.0)
--- NOTE | 2018-11-01 18:52 | PN ---
Subjective Date of Service: 11/01/18 Interval History: Patient c/o itching to back and chest , no hives or rash. reports intermittent nausea. denies chest pain or shortness or chest pain. Denies abd pain n/v/d. Upper endoscopy completed small ulcer noted with bleeding Family History: Unchanged from Admission Social History: Unchanged from Admission Past Medical History: Unchanged from Admission Objective Active Medications: Atorvastatin Calcium (Lipitor*) 10 mg PO QPM [facility] Last Admin: 11/01/18 17:30 Dose: 10 mg Buspirone HCl (Buspar Tab *) 15 mg PO QAM [facility] Last Admin: 11/01/18 17:27 Dose: 15 mg Dextrose (D50w Syringe 50 Ml*) 12.5 gm IV PUSH .FOR FS < 60 - SS PRN PRN Reason: FS < 60 Finasteride (Proscar Tab*) 5 mg PO DAILY [facility] Last Admin: 11/01/18 17:27 Dose: 5 mg Pantoprazole Sodium (Protonix Iv Bag*) 80 mg in 250 mls @ 25 mls/hr IVPB Q10H [facility] Last Admin: 11/01/18 09:53 Dose: 25 mls/hr Insulin Glargine (Lantus(*)) 20 units SUBCUT Q24H [facility] Last Admin: 11/01/18 05:45 Dose: Not Given Insulin Human Lispro (Humalog*) 0 units SUBCUT ACHS [facility]; Protocol Last Admin: 11/01/18 17:28 Dose: 1 units Levothyroxine Sodium (Synthroid Tab*) 125 mcg PO 0600 [facility] Last Admin: 11/01/18 06:02 Dose: 125 mcg Lisinopril (Prinivil Tab*) 5 mg PO DAILY [facility] Last Admin: 11/01/18 17:27 Dose: 5 mg Multivitamins/Minerals (Preservision Areds 2) 2 cap PO DAILY [facility] Last Admin: 11/01/18 17:19 Dose: Not Given Tamsulosin HCl (Flomax Cap*) 0.4 mg PO QPM [facility] Last Admin: 11/01/18 17:30 Dose: 0.4 mg Trazodone HCl (Desyrel Tab*) 25 mg PO BEDTIME PRN PRN Reason: anxiety Vital Signs - 8 hr 11/01/18 11/01/18 11/01/18 11:56 12:43 16:20 Temperature 98.1 F 97.8 F Pulse Rate 86 63 Respiratory 20 16 Rate Blood Pressure 108/47 135/54 (mmHg) O2 Sat by Pulse 97 97 Oximetry 11/01/18 11/01/18 11/01/18 16:24 16:25 17:25 Temperature 97.8 F 97.8 F 98.8 F Pulse Rate 80 80 94 Respiratory 16 16 20 Rate Blood Pressure 135/54 135/54 110/51 (mmHg) O2 Sat by Pulse 97 97 100 Oximetry Oxygen Devices in Use Now: None Appearance: alert and oriented , no acute distress Eyes: No Scleral Icterus Ears/Nose/Mouth/Throat: Clear Oropharnyx, Mucous Membranes Moist Neck: NL Appearance and Movements; NL JVP, Trachea Midline Respiratory: Symmetrical Chest Expansion and Respiratory Effort, Clear to Auscultation Cardiovascular: NL Sounds; No Murmurs; No JVD, No Edema Abdominal: NL Sounds; No Tenderness; No Distention Extremities: No Edema, No Clubbing, Cyanosis Neurological: Alert and Oriented x 3 Nutrition: Taking PO's Result Diagrams: 11/02/18 05:47 11/01/18 06:16 Microbiology and Other Data: Microbiology 10/31/18 09:15 Stool Occult Blood (BRENNA) - Final Stool Assess/Plan/Problems-Billing Assessment: Mr. Meyer is a 77 y.o male with a pmhx of .dm, hypothyroid, hld, progressive supranuclear palsy who presented to the emergency room with a several day history weakness, agitation and restlessness - Patient Problems (1) Acute anemia Current Visit: Yes Status: Acute Code(s): D64.9 - ANEMIA, UNSPECIFIED SNOMED Code(s): 145403966 Comment: suspect this is related to GI bleed in the setting of NSAID use - upper EDG today - showed small ulcer with bleeding - will continue protonix drip overnight - repeat h/h Q 12 hours (2) CKD (chronic kidney disease) Current Visit: No Status: Acute Code(s): N18.9 - CHRONIC KIDNEY DISEASE, UNSPECIFIED SNOMED Code(s): 402968798 Comment: - Known CKD - Creatinine is slightly above baseline on admission- improved to baseline. (3) Diabetes Current Visit: No Status: Chronic Priority: Medium Code(s): E11.9 - TYPE 2 DIABETES MELLITUS WITHOUT COMPLICATIONS SNOMED Code(s): 12064275 Comment: - Cont Lantus and SS - Hold oral diabetic agents (4) Hypercholesterolemia Current Visit: No Status: Chronic Priority: Medium Code(s): E78.0 - PURE HYPERCHOLESTEROLEMIA * DO NOT USE * SNOMED Code(s): 89665446 Comment: will continue atorvastatin (5) Hypertension Current Visit: No Status: Chronic Priority: Medium Code(s): I10 - ESSENTIAL (PRIMARY) HYPERTENSION SNOMED Code(s): 51619158 Comment: stable - will hold lisinopril sbp in the 110's - patient with GI bleed (6) DVT prophylaxis Current Visit: No Status: Acute Code(s): PEO5641 - SNOMED Code(s): 718820403 Comment: Scd's - no chemical dvt prop d/t gi bleeding (7) Full code status Current Visit: No Status: Acute Code(s): Z78.9 - OTHER SPECIFIED HEALTH STATUS SNOMED Code(s): 093801454 Status and Disposition: discharge home when medically stable
[2018-11-02] MEDS: Pantoprazole* 80 mg IN NS 80 MG/250 ML BAG IVPB SCH ×5 (00:02→21:58)
[2018-11-02] MEDS: Levothyroxine TAB* 125 MCG TAB PO SCH (05:11)
[2018-11-02 06:09] LABS: Hematocrit 20 % (36-46); Hemoglobin 6.9 g/dL (14.0-18.0)
[2018-11-02] MEDS: Insulin GLARGINE(*) 1 UNITS UNIT SUBCUT SCH ×2 (07:39→08:37)
[2018-11-02] MEDS: Insulin LISPRO* 1 UNITS UNIT SUBCUT SCH ×4 (07:43→21:32)
[2018-11-02] MEDS: MINS PO SCH (08:04)
[2018-11-02] MEDS: MULTIVITAMINS AREDS2 PO SCH (08:04)
[2018-11-02] MEDS: busPIRone TAB* 15 MG PO SCH (08:13)
[2018-11-02] MEDS: Finasteride TAB* 5 MG PO SCH (08:13)
[2018-11-02] MEDS: Atorvastatin* 10 MG TAB PO SCH (17:05)
[2018-11-02] MEDS: Tamsulosin CAP* 0.4 MG PO SCH (17:05)
--- NOTE | 2018-11-02 18:04 | PN ---
Subjective Date of Service: 11/02/18 Interval History: Patient no complaints today. denies vomiting or diarrhea. Denies abd pain. denies chest pain or shortness of breath. H/H trending down today 6.04/14 - will transfuse 1 unit prbc's Family History: Unchanged from Admission Social History: Unchanged from Admission Past Medical History: Unchanged from Admission Objective Active Medications: Atorvastatin Calcium (Lipitor*) 10 mg PO QPM [facility] Last Admin: 11/02/18 17:05 Dose: 10 mg Buspirone HCl (Buspar Tab *) 15 mg PO QAM [facility] Last Admin: 11/02/18 08:13 Dose: 15 mg Dextrose (D50w Syringe 50 Ml*) 12.5 gm IV PUSH .FOR FS < 60 - SS PRN PRN Reason: FS < 60 Finasteride (Proscar Tab*) 5 mg PO DAILY [facility] Last Admin: 11/02/18 08:13 Dose: 5 mg Pantoprazole Sodium (Protonix Iv Bag*) 80 mg in 250 mls @ 25 mls/hr IVPB Q10H [facility] Last Admin: 11/02/18 12:38 Dose: Not Given Insulin Glargine (Lantus(*)) 20 units SUBCUT Q24H [facility] Last Admin: 11/02/18 08:37 Dose: 20 units Insulin Human Lispro (Humalog*) 0 units SUBCUT ACHS [facility]; Protocol Last Admin: 11/02/18 17:04 Dose: 3 units Levothyroxine Sodium (Synthroid Tab*) 125 mcg PO 0600 [facility] Last Admin: 11/02/18 05:11 Dose: 125 mcg Lisinopril (Prinivil Tab*) 5 mg PO DAILY [facility] Last Admin: 11/02/18 08:13 Dose: 5 mg Multivitamins/Minerals (Preservision Areds 2) 2 cap PO DAILY [facility] Last Admin: 11/02/18 08:04 Dose: Not Given Tamsulosin HCl (Flomax Cap*) 0.4 mg PO QPM [facility] Last Admin: 11/02/18 17:05 Dose: 0.4 mg Trazodone HCl (Desyrel Tab*) 25 mg PO BEDTIME PRN PRN Reason: anxiety Vital Signs - 8 hr 11/02/18 11/02/18 11/02/18 10:50 11:05 13:20 Temperature 97.7 F 98.1 F 98.2 F Pulse Rate 80 75 80 Respiratory 18 18 18 Rate Blood Pressure 112/48 117/49 102/44 (mmHg) O2 Sat by Pulse 100 100 100 Oximetry 11/02/18 15:17 Temperature 98.7 F Pulse Rate 83 Respiratory 18 Rate Blood Pressure 92/42 (mmHg) O2 Sat by Pulse 92 Oximetry Oxygen Devices in Use Now: None Appearance: appears comfortable sitting in the chair, no acute distress Eyes: No Scleral Icterus Ears/Nose/Mouth/Throat: Clear Oropharnyx, Mucous Membranes Moist Neck: NL Appearance and Movements; NL JVP, Trachea Midline Respiratory: Symmetrical Chest Expansion and Respiratory Effort, Clear to Auscultation Cardiovascular: NL Sounds; No Murmurs; No JVD, No Edema Abdominal: NL Sounds; No Tenderness; No Distention Extremities: No Edema, No Clubbing, Cyanosis Skin: No Rash or Ulcers Neurological: Alert and Oriented x 3, - Nutrition: Taking PO's Result Diagrams: 11/02/18 05:47 11/01/18 06:16 Microbiology and Other Data: Microbiology 10/31/18 09:15 Stool Occult Blood (BRENNA) - Final Stool Assess/Plan/Problems-Billing Assessment: Mr. Meyer is a 77 y.o male with a pmhx of .dm, hypothyroid, hld, progressive supranuclear palsy who presented to the emergency room with a several day history weakness, agitation and restlessness - Patient Problems (1) Acute anemia Current Visit: Yes Status: Acute Code(s): D64.9 - ANEMIA, UNSPECIFIED SNOMED Code(s): 903206877 Comment: H/H .04/14 today - will transfuse 1 unit PRBC's suspect this is related to GI bleed in the setting of NSAID use - upper EDG today - showed small ulcer with bleeding - will continue protonix drip through tomorrow as per GI recommendation and then PPI Bid for 1 month and then daily thereafter - repeat h/h Q 12 hours (2) CKD (chronic kidney disease) Current Visit: No Status: Acute Code(s): N18.9 - CHRONIC KIDNEY DISEASE, UNSPECIFIED SNOMED Code(s): 928676112 Comment: - Known CKD - Creatinine is slightly above baseline on admission- improved to baseline. (3) Diabetes Current Visit: No Status: Chronic Priority: Medium Code(s): E11.9 - TYPE 2 DIABETES MELLITUS WITHOUT COMPLICATIONS SNOMED Code(s): 30393477 Comment: - Cont Lantus and SS - Hold oral diabetic agents (4) Hypercholesterolemia Current Visit: No Status: Chronic Priority: Medium Code(s): E78.0 - PURE HYPERCHOLESTEROLEMIA * DO NOT USE * SNOMED Code(s): 68317682 Comment: will continue atorvastatin (5) Hypertension Current Visit: No Status: Chronic Priority: Medium Code(s): I10 - ESSENTIAL (PRIMARY) HYPERTENSION SNOMED Code(s): 05480822 Comment: mild hypotension - will hold lisinopril sbp 90's to 110's - patient with GI bleed concern for volume depletion (6) DVT prophylaxis Current Visit: No Status: Acute Code(s): JXP6071 - SNOMED Code(s): 388707977 Comment: Scd's - no chemical dvt prop d/t gi bleeding (7) Full code status Current Visit: No Status: Acute Code(s): Z78.9 - OTHER SPECIFIED HEALTH STATUS SNOMED Code(s): 323734566 Status and Disposition: discharge home when medically stable
[2018-11-02 19:12] LABS: Hematocrit 22 % (36-46); Hemoglobin 7.6 g/dL (14.0-18.0)
[2018-11-03] MEDS: Pantoprazole* 80 mg IN NS 80 MG/250 ML BAG IVPB SCH ×3 (04:59→18:48)
[2018-11-03] MEDS: Levothyroxine TAB* 125 MCG TAB PO SCH (05:00)
[2018-11-03 06:43] LABS: ABS Basophils 0 10^3/ul (0-0.2); ABS Eosinophils 0.3 10^3/ul (0-0.6); ABS Lymphocytes 1.2 10^3/ul (1.0-4.8); ABS Monocytes 0.8 10^3/ul (0-0.8); ABS Neutrophils 3.5 10^3/ul (1.5-7.7); ABS Nucleated RBC 0 10^3/ul; Hematocrit 23 % (36-46); Hemoglobin 7.8 g/dL (14.0-18.0); Lymphocyte % 21.1 %; Mean Corpuscular HGB Conc 34 g/dL (31-36); Mean Corpuscular Hemoglobin 32 pg (27-31); Mean Corpuscular Volume 95 fL (80-94); Mean Platelet Volume 7.3 fL (7.4-10.4); Nucleated Red Blood Cells % 0.1; Platelet Count 233 10^3/uL (150-450); Red Blood Count 2.44 10^6 /uL (4.18-5.48); Red Cell Distribution Width 16 % (10.5-15); White Blood Count 5.9 10^3/uL (3.5-10.8)
[2018-11-03 07:00] LABS: BUN/Creatinine Ratio 21.3 (8-20); Calcium 8.3 mg/dL (8.6-10.3); EGFR African American 61.3 (>60); EGFR Non-African American 50.7 (>60); Potassium 3.9 mmol/L (3.5-5.0)
[2018-11-03] MEDS: MINS PO SCH (07:45)
[2018-11-03] MEDS: MULTIVITAMINS AREDS2 PO SCH (07:45)
[2018-11-03] MEDS: Insulin GLARGINE(*) 1 UNITS UNIT SUBCUT SCH (08:08)
[2018-11-03] MEDS: Insulin LISPRO* 1 UNITS UNIT SUBCUT SCH ×4 (08:09→21:13)
[2018-11-03] MEDS: busPIRone TAB* 15 MG PO SCH (08:14)
[2018-11-03] MEDS: Finasteride TAB* 5 MG PO SCH (08:14)
--- NOTE | 2018-11-03 15:42 | PN ---
Subjective Date of Service: 11/03/18 Interval History: Patient is feeling better today. Patient has no BMs since last night and does not remember if there was blood in the most recent one. Patient has mild abdominal pain, worse with palpation. Patient denies F/C, N/V, CP, SOB, dizziness, weakness above normal, or other pain. Family History: Unchanged from Admission Social History: Unchanged from Admission Past Medical History: Unchanged from Admission Objective Active Medications: Atorvastatin Calcium (Lipitor*) 10 mg PO QPM [facility] Last Admin: 11/02/18 17:05 Dose: 10 mg Buspirone HCl (Buspar Tab *) 15 mg PO QAM [facility] Last Admin: 11/03/18 08:14 Dose: 15 mg Dextrose (D50w Syringe 50 Ml*) 12.5 gm IV PUSH .FOR FS < 60 - SS PRN PRN Reason: FS < 60 Finasteride (Proscar Tab*) 5 mg PO DAILY [facility] Last Admin: 11/03/18 08:14 Dose: 5 mg Pantoprazole Sodium (Protonix Iv Bag*) 80 mg in 250 mls @ 25 mls/hr IVPB Q10H [facility] Last Admin: 11/03/18 08:15 Dose: 25 mls/hr Insulin Glargine (Lantus(*)) 20 units SUBCUT Q24H [facility] Last Admin: 11/03/18 08:08 Dose: 20 units Insulin Human Lispro (Humalog*) 0 units SUBCUT ACHS [facility]; Protocol Last Admin: 11/03/18 11:34 Dose: 3 units Levothyroxine Sodium (Synthroid Tab*) 125 mcg PO 0600 [facility] Last Admin: 11/03/18 05:00 Dose: 125 mcg Lorazepam (Ativan Tab(*)) 0.25 mg PO Q6H PRN PRN Reason: ANXIETY Multivitamins/Minerals (Preservision Areds 2) 2 cap PO DAILY [facility] Last Admin: 11/03/18 07:45 Dose: Not Given Tamsulosin HCl (Flomax Cap*) 0.4 mg PO QPM [facility] Last Admin: 11/02/18 17:05 Dose: 0.4 mg Trazodone HCl (Desyrel Tab*) 25 mg PO BEDTIME PRN PRN Reason: anxiety Last Admin: 11/02/18 22:29 Dose: 25 mg Vital Signs - 8 hr 11/03/18 11/03/18 11/03/18 07:47 12:08 14:40 Temperature 98.8 F 98.2 F 98.7 F Pulse Rate 78 70 73 Respiratory 16 16 14 Rate Blood Pressure 127/62 124/59 130/50 (mmHg) O2 Sat by Pulse 100 98 98 Oximetry Oxygen Devices in Use Now: None Appearance: Patient is a 77yo male who appears stated age and is sitting in the bed in NAD. Eyes: No Scleral Icterus, PERRLA Ears/Nose/Mouth/Throat: NL Teeth, Lips, Gums, Clear Oropharnyx Neck: NL Appearance and Movements; NL JVP Respiratory: Symmetrical Chest Expansion and Respiratory Effort, Clear to Auscultation Cardiovascular: NL Sounds; No Murmurs; No JVD, RRR, No Edema Abdominal: NL Sounds; No Tenderness; No Distention, No Hepatosplenomegaly Lymphatic: No Cervical Adenopathy Extremities: No Edema, No Clubbing, Cyanosis Skin: No Rash or Ulcers, No Nodules or Sclerosis Neurological: Alert and Oriented x 3, - - Bradykinesia. Result Diagrams: 11/03/18 06:30 11/03/18 06:30 Microbiology and Other Data: Microbiology 10/31/18 09:15 Stool Occult Blood (BRENNA) - Final Stool Assess/Plan/Problems-Billing Assessment: Mr. Meyer is a 77 y.o male with a pmhx of .dm, hypothyroid, hld, progressive supranuclear palsy who presented to the emergency room with a several day history weakness, agitation and restlessness who was found to have a GI bleed which is improving. - Patient Problems (1) Acute anemia Current Visit: Yes Status: Acute Code(s): D64.9 - ANEMIA, UNSPECIFIED SNOMED Code(s): 846236794 Comment: - Hemoglobin 7.8 today. Trending up, no need for additional tranfusion at this time. - Suspect this is related to GI bleed in the setting of NSAID use - Upper EGD showed small ulcer with bleeding - will continue protonix drip through tomorrow as per GI recommendation and then PPI Bid for 1 month and then daily thereafter - Repeat H/H in AM (2) Progressive supranuclear palsy Current Visit: Yes Status: Acute Code(s): G23.1 - PROGRESSIVE SUPRANUCLEAR OPHTHALMOPLEGIA SNOMED Code(s): 561450584 Comment: - Presumptive diagnosis - No reversible cause identified, Negative Paraneoplastic testing (3) CKD (chronic kidney disease) Current Visit: No Status: Acute Code(s): N18.9 - CHRONIC KIDNEY DISEASE, UNSPECIFIED SNOMED Code(s): 328685625 Comment: - Known CKD - Creatinine is slightly above baseline on admission- improved to baseline. (4) Hypothyroidism Current Visit: No Status: Acute Code(s): E03.9 - HYPOTHYROIDISM, UNSPECIFIED SNOMED Code(s): 87891183 Comment: - Continue Levothyroxine. (5) Diabetes Current Visit: No Status: Chronic Priority: Medium Code(s): E11.9 - TYPE 2 DIABETES MELLITUS WITHOUT COMPLICATIONS SNOMED Code(s): 23052969 Comment: - Cont Lantus and SS - Hold oral diabetic agents (6) Hypercholesterolemia Current Visit: No Status: Chronic Priority: Medium Code(s): E78.0 - PURE HYPERCHOLESTEROLEMIA * DO NOT USE * SNOMED Code(s): 05262786 Comment: - Continue Atorvastatin. (7) Hypertension Current Visit: No Status: Chronic Priority: Medium Code(s): I10 - ESSENTIAL (PRIMARY) HYPERTENSION SNOMED Code(s): 35168548 Comment: - Normotensive, continue to hold antihypertensives. (8) DVT prophylaxis Current Visit: No Status: Acute Code(s): GUZ8047 - SNOMED Code(s): 172446303 Comment: - SCDs - No chemical dvt prop d/t gi bleeding Status and Disposition: Discharge when medically stable, Goals of care are mainly comfort at this time.
[2018-11-03 17:30] LABS: ABS Basophils 0 10^3/ul (0-0.2); ABS Eosinophils 0.2 10^3/ul (0-0.6); ABS Lymphocytes 1.1 10^3/ul (1.0-4.8); ABS Monocytes 0.7 10^3/ul (0-0.8); ABS Neutrophils 3.8 10^3/ul (1.5-7.7); ABS Nucleated RBC 0 10^3/ul; Eosinophil % 4.2 %; Hematocrit 23 % (36-46); Hemoglobin 7.9 g/dL (14.0-18.0); Lymphocyte % 18.1 %; Mean Corpuscular HGB Conc 34 g/dL (31-36); Mean Corpuscular Hemoglobin 33 pg (27-31); Mean Corpuscular Volume 95 fL (80-94); Mean Platelet Volume 6.8 fL (7.4-10.4); Nucleated Red Blood Cells % 0.1; Platelet Count 237 10^3/uL (150-450); Red Blood Count 2.43 10^6 /uL (4.18-5.48); Red Cell Distribution Width 15 % (10.5-15); White Blood Count 5.8 10^3/uL (3.5-10.8)
[2018-11-03] MEDS: Atorvastatin* 10 MG TAB PO SCH (17:33)
[2018-11-03] MEDS: Tamsulosin CAP* 0.4 MG PO SCH (17:33)
[2018-11-04] MEDS: LORazepam TAB(*) 0.5 MG PO PRN ×2 (00:34→08:52)
--- NOTE | 2018-11-04 01:49 | DS ---
CC: Dr. Ying Soares * DISCHARGE SUMMARY: DATE OF ADMISSION: 10/31/18 ANTICIPATED DATE OF DISCHARGE: 11/04/18 PRIMARY CARE PROVIDER: Dr. Ying Soares. MY ATTENDING WHILE IN THE HOSPITAL: Dr. Isaac Kwon.* (DICTATED BY CATHERINE BAINS) PRIMARY DISCHARGE DIAGNOSES: 1. Acute blood loss anemia. 2. Duodenal ulcer due to NSAID use. SECONDARY DISCHARGE DIAGNOSES: 1. Progressive supranuclear palsy. 2. Hypertension. 3. Hyperlipidemia. 4. Diabetes mellitus. 5. Hypothyroidism. 6. Benign prostatic hypertrophy. 7. Macular degeneration. 8. History of Guillain-[place]. 9. History of squamous cell cancer. 10. History of thyroid cancer. MEDICATIONS AT DISCHARGE: 1. Tamsulosin 0.4 mg p.o. q.p.m. 2. Atorvastatin 10 mg p.o. q.p.m. 3. Buspirone 15 mg p.o. q.a.m. 4. Insulin detemir 30 units subcutaneous q.a.m. 5. Calcitriol 0.5 mcg p.o. q.a.m. 6. Finasteride 5 mg p.o. daily. 7. Synthroid 125 mcg p.o. daily. 8. PreserVision 2 caps p.o. daily. 9. Metformin 1000 mg p.o. b.i.d. 10. Lorazepam 0.25 mg p.o. q.6 hours as needed. 11. Omeprazole 20 mg p.o. b.i.d. New medications on discharge: 1. Lorazepam. 2. Omeprazole. Medications discontinued on discharge: Lisinopril 5 mg p.o. daily. HOSPITAL COURSE: This is a brief summary of the patient's presentation. For more details, please see the history and physical by CATHERINE Cohen, on 10/31/18. In brief, the patient is a 77-year-old male with past medical history significant for the above, who has been declining neurologically recently. The patient had an extensive workup earlier this year for secondary preventable causes. Given that all these were negative, initial diagnosis of progressive supranuclear palsy was established by his neurologist. It is believed this is the most likely cause. The patient, before his admission, had abrupt worsening in his mental state. The patient had just gotten home 10 days prior to his admission after a 3-week stay for physical therapy. The patient complained of a "sour stomach with heartburn and nausea." The patient had been taking Aleve and Excedrin. The patient had not had any black or tarry stools. The patient had been falling frequently. The patient, in the emergency department, was noted to have a hemoglobin of 6, was transfused 2 units packed red blood cells. The patient also had an elevated creatinine of 2.04, an elevated potassium and elevated calcium. These were repeated and improved with the calcium, potassium and creatinine returning to baseline. The patient had 3+ leukocyte esterase in his urine, but had nothing on his blood culture. The patient had a stool occult blood that was negative. The patient was seen in consultation by Dr. Gabriele Dennis of GI. The patient was recommended a Protonix drip. The patient had endoscopy on 11/01/18, which showed duodenal ulcer with active bleeding and ulcer. Recommend continuation of IV PPI for 1 to 2 more days and then transition to twice a day PPI after that. The patient in the hospital had low normal blood pressures and his lisinopril was held. The patient initially had some borderline tachycardia, which improved. The patient's was insistent on him going home and not having rehab with the main focus of his care being for his comfort and staying out of the hospital. The patient is stable. The patient's hemoglobin is slowly increasing without transfusions. The patient was transfused his third unit on 11/02/18 for a hemoglobin of 6.9. If the patient's hemoglobin stayed stable on 11/04/18 as well as his vital signs , he will be stable enough for discharge on that date. PHYSICAL EXAM ON THE DAY OF DISCHARGE: General: The patient is a 77-year-old male who appeared stated age, sitting comfortably in the bed, in no acute distress. Vital Signs: Temperature 97.7, pulse 73, respiratory rate 14, oxygen saturation 98% on room air, blood pressure 135/50. HEENT: Head: Normocephalic , atraumatic. Sclerae anicteric. No conjunctival injection. Nasal mucosa is moist. Oral mucosa is moist. No pharyngeal erythema, discharge or exudate. Neck: Supple, nontender. No lymphadenopathy. No carotid bruits auscultated No JVD. Cardiac: Regular rate and rhythm. No clicks, murmurs, gallops, or rubs. Pulses 2+ in the bilateral dorsalis pedis, posterior tibialis, and radial areas. Respiratory: Clear to auscultation bilaterally. No wheezes, rales, or rhonchi. Good air exchange bilaterally. Abdomen: Soft, slightly tender to palpation in the epigastric area without rebound or guarding. Genitourinary: No suprapubic or CVA tenderness. Skin: Clean, dry, intact. No rash. Neuro: Shows diffuse weakness, worse in the lower extremity. Coarse saccades, decreased upper gaze, all consistent with previous exam. Psychiatric : Pleasant and cooperative, somewhat anxious. DISCHARGE PLAN: The patient will be discharged to home under the care of his . The patient is having a hospital bed, and visiting nurse services visits the patient with sign on for palliative care nursing. The patient should follow up with his primary care provider in 1 week for a repeat CBC and for general medical management. The patient's blood pressure to be checked at this time and lisinopril should be restarted if indicated. The patient should follow up with Dr. Connors for management of his presumed progressive supranuclear palsy and any treatments that could be undertaken to help improve his quality of life. The patient should avoid all NSAIDs. The patient will be continued on twice daily proton pump inhibitors for 1 month per the direction of Gastroenterology and then continue on them once a day. The patient should return to the hospital for dark stools, passing out, chest pain, shortness of breath, or other alarming symptoms. The patient's behavior at home is sometimes difficult to manage for his , but both of them are in agreement that his main goal is staying home. The patient has been prescribed a low dose of Ativan for these instances. The patient, given his progressive supranuclear palsy, should have antipsychotics avoided at all cost. The patient should have a soft diet and transition to heart healthy diet without caffeine. working with VNS to maximize independence at home. TIME SPENT: Approximately 60 minutes was spent on this discharge of this patient, 30 of which was spent [id number] with the patient obtaining history and physical and discussing treatment plan. CATHERINE BAINS [id number]/[facility] #: [id number] ALICE
[2018-11-04] MEDS: Pantoprazole* 80 mg IN NS 80 MG/250 ML BAG IVPB SCH (05:31)
[2018-11-04] MEDS: Levothyroxine TAB* 125 MCG TAB PO SCH (05:32)
[2018-11-04 06:45] LABS: ABS Basophils 0 10^3/ul (0-0.2); ABS Eosinophils 0.3 10^3/ul (0-0.6); ABS Monocytes 0.8 10^3/ul (0-0.8); ABS Neutrophils 4.5 10^3/ul (1.5-7.7); ABS Nucleated RBC 0 10^3/ul; Eosinophil % 4.7 %; Hematocrit 23 % (36-46); Hemoglobin 7.9 g/dL (14.0-18.0); Lymphocyte % 14.8 %; Mean Corpuscular HGB Conc 34 g/dL (31-36); Mean Corpuscular Hemoglobin 32 pg (27-31); Mean Corpuscular Volume 93 fL (80-94); Mean Platelet Volume 7.3 fL (7.4-10.4); Nucleated Red Blood Cells % 0.1; Platelet Count 248 10^3/uL (150-450); Red Blood Count 2.45 10^6 /uL (4.18-5.48); Red Cell Distribution Width 16 % (10.5-15); White Blood Count 6.6 10^3/uL (3.5-10.8)
[2018-11-04 07:02] LABS: BUN/Creatinine Ratio 15.7 (8-20); Calcium 8.1 mg/dL (8.6-10.3); EGFR African American 62.4 (>60); EGFR Non-African American 51.6 (>60); Magnesium 1.5 mg/dL (1.9-2.7); Potassium 3.9 mmol/L (3.5-5.0)
[2018-11-04] MEDS: MULTIVITAMINS AREDS2 PO SCH (08:22)
[2018-11-04] MEDS: MINS PO SCH (08:22)
[2018-11-04] MEDS: busPIRone TAB* 15 MG PO SCH (08:30)
[2018-11-04] MEDS: Finasteride TAB* 5 MG PO SCH (08:30)
[2018-11-04] MEDS: Insulin LISPRO* 1 UNITS UNIT SUBCUT SCH (08:31)
[2018-11-04] MEDS: Insulin GLARGINE(*) 1 UNITS UNIT SUBCUT SCH (08:31)
[2018-11-04 11:51] VITALS: BP 119/48
--- NOTE | 2018-11-04 12:04 | PN ---
Progress Note - Progress Note Date of Service: 11/04/18 Note: Pt seen today in anticipation of d\c today. He is feeling well. He has not noticed any bleeding. VS stable. Cardiac exam reveals regular rate/rhythm. Lungs are clear. Abd soft, NT, ND. Plan for d/c home. Add ferrous sulfate to d/ c med list.
== END 2018-11-04 15:40 | disposition home or self-care (01) | DRG 378 ==
LOC: ED 07:50 → MEDTELE 11:52
PROVIDERS: ADMIT Internal Medicine; ATTEND Hospitalist
PROC: 30233N1 Transfusion of Nonautologous Red Blood Cells into Peripheral Vein, Percutaneous Approach (ICD-10-PCS; 2018-10-31)
PROC: 0DJ08ZZ Inspection of Upper Intestinal Tract, Via Natural or Artificial Opening Endoscopic (ICD-10-PCS; principal; 2018-11-01)
DX: K26.4 Chronic or unspecified duodenal ulcer with hemorrhage (principal); G23.1 Progressive supranuclear ophthalmoplegia [Steele-Richardson-Olszewski]; G61.0 Guillain-Barre syndrome; D62 Acute posthemorrhagic anemia; E89.0 Postprocedural hypothyroidism; E78.00 Pure hypercholesterolemia, unspecified; N40.0 Benign prostatic hyperplasia without lower urinary tract symptoms; M06.9 Rheumatoid arthritis, unspecified; M19.90 Unspecified osteoarthritis, unspecified site; H35.30 Unspecified macular degeneration; F41.9 Anxiety disorder, unspecified; F32.9 Major depressive disorder, single episode, unspecified; G43.909 Migraine, unspecified, not intractable, without status migrainosus; R40.2362 Coma scale, best motor response, obeys commands, at arrival to emergency department; R40.2142 Coma scale, eyes open, spontaneous, at arrival to emergency department; R40.2252 Coma scale, best verbal response, oriented, at arrival to emergency department; E78.5 Hyperlipidemia, unspecified; N18.3 Chronic kidney disease, stage 3 (moderate); E11.22 Type 2 diabetes mellitus with diabetic chronic kidney disease; I12.9 Hypertensive chronic kidney disease with stage 1 through stage 4 chronic kidney disease, or unspecified chronic kidney disease; M35.3 Polymyalgia rheumatica; K44.9 Diaphragmatic hernia without obstruction or gangrene; K29.70 Gastritis, unspecified, without bleeding; T39.395A Adverse effect of other nonsteroidal anti-inflammatory drugs [NSAID], initial encounter; Z85.850 Personal history of malignant neoplasm of thyroid; Z88.8 Allergy status to other drugs, medicaments and biological substances; Z88.6 Allergy status to analgesic agent; Z85.828 Personal history of other malignant neoplasm of skin; Z92.21 Personal history of antineoplastic chemotherapy; Z92.3 Personal history of irradiation; Z90.49 Acquired absence of other specified parts of digestive tract; Z98.42 Cataract extraction status, left eye; Z98.41 Cataract extraction status, right eye; Y92.9 Unspecified place or not applicable; Z79.4 Long term (current) use of insulin; Z79.84 Long term (current) use of oral hypoglycemic drugs
CPT/HCPCS: 36415; 70450; 71045; 72125; 80048; 80053; 80320; 81003; 81015; 82270; 82947; 83605; 83735; 84443; 84484; 85014; 85018; 85025; 85610; 85730; 86850; 86900; 86901; 86922; 87086; 87641; 93005; 99156; 99157; 99284; A9270-GY; G0480; J2250; J3010; P9040